=== PATIENT | female | born 1975 | race Caucasian/White ===

== ENCOUNTER 2018-03-27 09:18 | Emergency (ER) | payer OTHER ==
[2018-03-27 09:30] VITALS: TEMP 98.8; BMI 28.2
--- NOTE | 2018-03-27 09:58 | PDOC ---
History of Present Illness - General Chief Complaint: Vomiting/Diarrhea Stated Complaint: ABD PAIN, CHILLS Time Seen by Provider: 03/27/18 09:47 History Source: Patient Exam Limitations: No Limitations - History of Present Illness Initial Comments: 03/27/18 11:28 Previously healthy 42 y/o female presenting to [facility] ED complaining of nausea, vomiting, and diarrhea for the past five hours. Vomiting described as non- bloody and containing food particulates. Diarrhea described as non-bloody and watery in consistency. Unable to tolerate PO since onset. No trials of medication prior to arrival. Denies sick contacts or recent travel. Endorses vague, difficult to localize LLQ abdominal / left flank pain. Denies possibility of ; not sexually active; hormonal IUD in place for past 5 years. Last OBGYN eval 6 months ago. LMP 5 days ago. No history of STDs. Expressed concern symptoms are similar to her past kidney infection 5 years ago. Denies fever, dysuria, polyuria, urgency, or hematuria. Denies recent weight loss or gain, trauma, rash, headache, change in vision, dizziness, sore throat, chest pain, shortness of breath, or syncope. Past History - Travel Traveled outside of the country in the last 30 days: No Close contact w/someone who was outside of country & ill: No - Past Medical History Allergies/Adverse Reactions: Allergies Allergy/AdvReac Type Severity Reaction Status Date / Time No Known Allergies Allergy Verified 03/27/18 09:25 Home Medications: Ambulatory Orders Cephalexin Monohydrate [Keflex -] 500 mg PO TID 7 Days #21 capsule 03/27/18 Ondansetron HCl [Zofran] 8 mg PO Q8H PRN #10 tablet 03/27/18 COPD: No Comment:: 03/27/18 11:29 Pt endorses recurrent pyelonephritis, last 5 years ago. Denies current home prescriptions or OTC medication use. - Surgical History Comments:: 03/27/18 11:30 Pt denies past surgical history or recent hospitalizations. - Suicide/Smoking/Psychosocial Hx Smoking Status: No Smoking History: Never smoked Have you smoked in the past 12 months: No Information on smoking cessation initiated: No Hx Alcohol Use: No Drug/Substance Use Hx: No Substance Use Type: None Review of Systems - Review of Systems Constitutional: Yes: Loss of Appetite, Malaise, Weight Stable. No: Chills, Diaphoresis, Fever, Unintentional Wgt. Loss, Unexplained wgt Loss HEENTM: No: Recent change in vision, Throat Pain, Difficulty Swallowing Respiratory: No: Shortness of Breath Cardiac (ROS): No: Chest Pain, Lightheadedness, Palpitations, Syncope ABD/GI: Yes: Diarrhea, Nausea, Poor Appetite, Poor Fluid Intake, Vomiting. No: Blood Streaked Bowels, Constipated, Difficulty Swallowing, Rectal Bleeding, Indigestion, Tarry Stools : No: Burning, Dysuria, Discharge, Frequency, Flank Pain, Hematuria, Incontinence, Urgency Musculoskeletal: No: Muscle Weakness Integumentary: No: Rash, Sweating Neurological: No: Headache Endocrine: No: Unexplained Weight Gain, Unexplained Weight Loss *Physical Exam - Vital Signs Last Vital Signs Temp Pulse Resp BP Pulse Ox 98.8 F 86 18 121/74 100 03/27/18 09:25 03/27/18 09:25 03/27/18 09:25 03/27/18 09:25 03/27/18 09:25 - Physical Exam Comments: 03/27/18 11:33 Constitutional: Well-developed, well-nourished female in no distress. Found sitting upright in hospital bed with two minor children present. Average body habitus. Alert and oriented x4, with normal affect. Answered all questions appropriately and completely. Eyes: Sclerae white. Conjunctiva moist and not injected. ENT: Hearing normal. Lips, gums and oropharynx: pink, moist, not injected, no lesions, no ulcerations. Neck: Supple, trachea is midline, no JVD. Cardiovascular: Regular rate and regular rhythm. No murmur, rubs, clicks, or gallops. Peripheral pulses: Radial pulses full Respiratory: Clear to auscultation bilaterally. No stridor, no wheezing, no rhonchi. Gastrointestinal: abdomen is soft, subjective mild tenderness in LLQ without withdrawal, grimace, or rebound. No peritoneal signs. No hepatosplenemegaly or masses. No CVA tenderness. No overlying skin lesions or obvious signs of trauma. Neuro: Alert and oriented. Moving all extremities spontaneously. Psych: Affect: appropriate. Mood: normal Skin: Intact. No obvious lesions. ED Treatment Course - LABORATORY CBC & Chemistry Diagram: 03/27/18 11:05 07/16/18 11:05 Medical Decision Making - Medical Decision Making 03/27/18 13:26 Previously healthy 42 y/o female with virgin abdomen complaining 5 hour history of nausea, vomiting, diarrhea, and mild LLQ abdominal pain. Denies urinary symptoms. Afebrile on arrival. Vitals unremarkable for hypotension or tachycardia. Physical exam revealing of mild LLQ abdominal pain; unremarkable for peritoneal signs or CVA tenderness. Concern for acute gastroenteritis given description and short duration without systemic signs. Low suspicion for ectopic given IUD, unremarkable vitals, and description of pain. Low suspicion for IUD far migration given description of pain and pts reportedly unremarkable recent OBGYN evaluation. Low suspicion for UTI or pyelonephritis as pt is afebrile and denies urinary symptoms. Low suspicion for nephrolithiasis given low intensity of non-migratory pain. Low suspicion for pancreatitis given location of symptoms and pt is reportedly a non-drinker. Will order CBC, CMP, lipase, Urine HCG, UA, and urine culture. Will administer Zofran for nausea and attempt IV rehydration. 15:40 Pt reports improvement with decreased nausea. 17:17 Pt reports no additional episodes of emesis and continued improvement with nausea. CBC remarkable for leukocytosis to 15. CMP unremarkable for metabolic derangement. UA mildly positive for leukocyte esterase and 22 WBCs. Continue to suspect gastroenteritis. Leukocytosis is potentially physiologic secondary to nausea/vomiting. Low suspicion for UTI but pt again expressed concern symptoms are similar to her previous kidney infections. Pt safe to d/c home. Will prescribe a 7 day course of Keflex in abundance of caution for developing pyelonephritis. Additionally, will order PO Zofran for nausea. Discussed results and plan to discharge home. Pt expressed verbal understanding and agreement with plan. *DC/Admit/Observation/Transfer Diagnosis at time of Disposition: Gastroenteritis UTI (urinary tract infection) Qualifiers: Urinary tract infection type: site unspecified Hematuria presence: without hematuria Qualified Code(s): N39.0 - Urinary tract infection, site not specified - Discharge Dispostion Disposition: HOME Condition at time of disposition: Improved Decision to Admit order: No - Prescriptions Prescriptions: Cephalexin Monohydrate [Keflex -] 500 mg PO TID 7 Days #21 capsule Ondansetron HCl [Zofran] 8 mg PO Q8H PRN #10 tablet PRN Reason: Nausea And/Or Vomiting - Referrals - Patient Instructions Printed Discharge Instructions: DI for Viral Gastroenteritis -- Adult, DI for Urinary Tract Infection (UTI) Additional Instructions: Please continue to drink fluids (water, Gatorade, etc) to stay hydrated. You can try and eat a small bland meal (crackers, etc) after you have stopped vomiting for 12 hours. Return to the emergency room if your vomiting becomes much worse and you are no longer able to keep fluids down, if you begin to feel dehydrated, if you develop a fever, pass out, become disoriented, begin vomiting blood, have bloody diarrhea, or you feel like you need additional emergency care. You can also see your primary care doctor if you symptoms do not improve. I have sent a prescription for Zofran (Ondansetron) and Keflex (Cephalexin) to [facility] on [facility] in [place], [place]. Their phone number is [phone]. Take the Zofran every 8 hours as needed for nausea / vomiting. Take the Keflex three times a day for 7 days for your urinary symptoms. - Post Discharge Activity
[2018-03-27] MEDS ORDERED: METOCLOPRAMIDE HCL INJECTION 10 MG/2 ML VIAL IVPUSH ONE (10:31)
[2018-03-27] MEDS ORDERED: SODIUM CHLORIDE 0.9% 1000 ML INFUS.BAG IV ONE (10:31)
[2018-03-27] MEDS ORDERED: ACETAMINOPHEN 1000 MG/100 ML VIAL (NON FORMULARY) IVPB ONE (10:31)
[2018-03-27] MEDS ORDERED: METOCLOPRAMIDE HCL INJECTION 10 MG/2 ML VIAL IVPB ONE (10:36)
[2018-03-27] MEDS ORDERED: ONDANSETRON 4 MG/2 ML VIAL IVPUSH ONE (10:37)
[2018-03-27] MEDS ORDERED: ACETAMINOPHEN INJECTION 100 ML IVPB ONE (11:08)
[2018-03-27] MEDS ORDERED: ONDANSETRON 4 MG/2 ML VIAL ONE (11:08)
[2018-03-27 11:14] LABS: BASO % 0.2 % (0-2.0); EOS % 0.1 % (0-4.5); HEMATOCRIT 38.7 % (32.4-45.2); HEMOGLOBIN 12.5 GM/dL (10.7-15.3); LYMPH % 6.8 % (8-40); MCHC 32.4 g/dl (32.0-36.0); MEAN CELL VOLUME 83.4 fl (80-96); MEAN PLT VOLUME 8.8 fl (7.5-11.1); MONO % 6.2 % (3.8-10.2); NEUT % 86.7 % (42.8-82.8); PLATELET COUNT 269 K/MM3 (134-434); RBC 4.64 M/mm3 (3.60-5.2); RDW 16.7 % (11.6-15.6); WHITE BLOOD COUNT 15.1 K/mm3 (4.0-10.0)
[2018-03-27 11:23] LABS: HCG,QUALITATIVE URINE NEGATIVE
[2018-03-27 11:27] LABS: URINE APPEARANCE SLCLOUDY; URINE BILIRUBIN NEGATIVE (<2.0 mg/dL); URINE COLOR YELLOW; URINE GLUCOSE (UA) NEGATIVE (NEGATIVE); URINE KETONE NEGATIVE (NEGATIVE); URINE LEUK ESTERASE TRACE (NEGATIVE); URINE NITRITE NEGATIVE (NEGATIVE); URINE PROTEIN NEGATIVE (NEGATIVE); URINE UROBILINOGEN NEGATIVE mg/dL (0.2-1.0)
[2018-03-27 11:37] LABS: EPI CELLS MODERATE /HPF (FEW); URINE HYALINE CAST 17 /lpf; URINE MUCUS RARE
[2018-03-27 11:45] LABS: ALBUMIN 3.9 g/dl (3.4-5.0); ANION GAP 8 (8-16); BILIRUBIN,TOTAL 0.4 mg/dL (0.2-1.0); BLOOD UREA NITROGEN 14 mg/dL (7-18); CHLORIDE 106 mmol/L (98-107); CO2 27 mmol/L (21-32); CREATININE 0.7 mg/dL (0.55-1.02); GLUCOSE,RANDOM 95 mg/dL (74-106); POTASSIUM 4.1 mmol/L (3.5-5.1); SGOT/AST 16 U/L (15-37); SGPT/ALT 23 U/L (12-78); SODIUM 141 mmol/L (136-145); TOT PROT 7.5 g/dl (6.4-8.2)
[2018-03-27 11:46] LABS: ALK PHOS 62 U/L (45-117)
[2018-03-27 13:49] VITALS: BP 113/65; PULSE 64
--- NOTE | 2018-03-27 15:42 | PDOC ---
Attending Attestation - HPI HPI: 03/27/18 15:42 The patient is a 42 year old female with a significant PMH of kidney disease, and chronic back pain who presents to the emergency department with nausea, vomiting and diarrhea for 1 day. Vomiting described as non-bloody and containing food particulates. Diarrhea described as non-bloody and watery in consistency. The patient reports that she began to experience these symptoms at around 5 pm yesterday. The patient reports 7 episodes of vomiting. She also reports some left sided abdominal discomfort secondary to her vomiting and diarrhea. The patient denies any other symptoms. She denies fever, chills, nausea, and constipation. She denies chest pain, shortness of breath, headache and dizziness. Denies sexual activity. hormonal IUD in place for past 5 years. Last OBGYN eval 6 months ago. LMP 5 days ago. No history of STDs. Expressed concern symptoms are similar to her past kidney infection 5 years ago.The patient denies any other complaints. Documentation prepared by Moy Valentine, acting as medical physics professor for Silvano Akers MD. - Physicial Exam PE: 03/27/18 15:43 Constitutional: No recent illness; no fever ENT: No sore throat Cardiovascular: No palpitations; no chest pain Pulmonary: No cough; no trouble breathing Gastrointestinal: No nausea; no vomiting; no diarrhea Genitourinary: No urinary problems; no hematuria Skin: No rash Lymph system: No swollen glands Musculoskeletal: No joint swelling Neurological: No weakness; oo numbness; No Headache; no vertigo; no lightheadedness Psychiatric:No anxiety; no depression <Moy Valentine - Last Filed: 03/27/18 15:42> - Resident Resident Name: Percy Cortez - ED Attending Attestation I have performed the following: I have examined & evaluated the patient, The case was reviewed & discussed with the resident, I agree w/resident's findings & plan, Exceptions are as noted - Medical Decision Making 03/27/18 16:22 One-day history of nausea vomiting diarrhea and very mild urinary symptoms and flank discomfort History and examination most consistent with viral GI illness no travel no sick contacts we'll check labs hydrate antiemetics observe and reassess Reevaluation patient feels much better now tolerating fluids and food by mouth. Laboratory analysis demonstrates slight leukocytosis with's evidence of WBCs in her urinalysis. Given her previous history of frequent UTIs we'll treat with 10 day course of Keflex given some back discomfort although my suspicion at this time for pyelonephritis as well. She was instructed to follow-up with her primary care provider and she was told to return to emergency department for fever severe worsening back pain persistent vomiting or for any concerns Findings, the need for follow-up and strict return instructions discussed patient. <Silvano Akers - Last Filed: 03/27/18 16:22>
== END 2018-03-27 13:52 | disposition home or self-care (01) ==
LOC: JER 09:18
PROC: 3E033GC Introduction of Other Therapeutic Substance into Peripheral Vein, Percutaneous Approach (ICD-10-PCS; principal; 2018-03-27)
PROC: 3E033NZ Introduction of Analgesics, Hypnotics, Sedatives into Peripheral Vein, Percutaneous Approach (ICD-10-PCS; 2018-03-27)
DX: K52.9 Noninfective gastroenteritis and colitis, unspecified (principal); N39.0 Urinary tract infection, site not specified
CPT/HCPCS: 36415; 80053; 81003; 81015; 83690; 84703; 85025; 87086; 87186; 96374; 96375; 99283-25; J0131; J7030